=== PATIENT | female | born 1980 | race Caucasian/White ===

== ENCOUNTER 2025-10-08 18:53 | Emergency (ER) | payer OTHER, SELFPAY ==
--- OUTSIDE RECORDS SUMMARY | 2025-10-08 18:56 | XMS_ITS | Clinical Summary ---
Author Organization [facility] Address [address] [place] [address] Phone Care Team Providers Care Tire Debeader Name Role Phone Allan Tafoya MD Primary Care Provider [phone] Morales Lemus DPM Unavailable Allergies No known active allergies Medications escitalopram (LEXAPRO) 10 MG Tablet Take 10 mg by mouth daily. Active Levonorgestrel-E thinyl Estrad 0.1-20 MG-MCG Tablet 02/21/2017 Active nitrofurantoin, macrocrystal-mon ohydrate, (MACROBID) 100 MG Capsule Take 100 mg by mouth 2 times daily. Active Active Problems Problem Noted Date Diagnosed Date Plantar fasciitis, right 05/18/2017 Other enthesopathy of right foot 05/18/2017 Family History Medical History Relation Name Comments Diabetes Father Leukemia/Lymphoma Father Other-comment Mother Relation Name Status Comments Father Mother Alive Social History Tobacco Use Types Packs/Day Years Used Date Smoking Tobacco: Never Tobacco Cessation:Counseling Given: No Alcohol Use Standard Drinks/Week Comments Yes 0 (1 standard drink = 0.6 oz pur e alcohol) occassionally Sexually Active Control Partners Comments Not Currently Comments No Sex and Gender Information Value Date Recorded Sex Assigned at Not on file Legal Sex Female 12:24 AM CDT Gender Identity Not on file Sexual Orientation Not on file Last Filed Vital Signs Vital Sign Reading Time Taken Comments Blood Pressure 104/52 11/23/2017 12:33 AM LIBRARY TECHNICIAN Pulse 72 11/23/2017 12:33 AM LIBRARY TECHNICIAN Temperature 36.8 C (98.2 F) 11/22/2017 7:52 PM LIBRARY TECHNICIAN Respiratory Rate 16 11/23/2017 12:33 AM LIBRARY TECHNICIAN Oxygen Saturation 96% 11/23/2017 12:33 AM LIBRARY TECHNICIAN Inhaled Oxygen Concentration - - Weight 99.8 kg (220 lb) 11/22/2017 7:52 PM LIBRARY TECHNICIAN Height 177.8 cm (5' 10) 11/22/2017 7:52 PM LIBRARY TECHNICIAN Body Mass Index 31.57 11/22/2017 7:52 PM LIBRARY TECHNICIAN Plan of Treatment Health Maintenance Due Date Last Done Comments Hepatitis C Virus (HCV) Screening 1982 TdaP Immunization 1982 Varicella Immunization (1 of 2 - 13+ 2-dose series) 1995 Hepatitis B Immunization (1 of 3 - 19+ 3-dose series) 2001 Pap Smear 2003 Cervical Cancer Screening (CCS) 01/28/2012 HPV/Cotest 01/28/2012 Influenza Immunization (#1) 2025 12/20/2016 SARS-COV-2 Immunization ( season) 2025 Respiratory Syncytial Virus (RSV) Immunization (Adult) (1 - 1-dose 75+ series) 2057 Human Papillomavirus (HPV) Immunization (No Doses Required) Completed Meningococcal Immunization (ACWY) Aged Out No longer eligible based on patient's age to complete this topic Pneumococcal Immunization Combined Aged Out No longer eligible based on patient's age to complete this topic Rotavirus Immunization Aged Out No lo nger eligible based on patient's age to complete this topic Care Teams Tire Debeader Relationship Specialty Start Date End Date Allan Tafoya MD [address] [place] [id number] PCP - General Internal Medicine 11/04/16 Morales Lemus DPM [address] [place] [id number] Consulting Physician Podiatry 05/02/17
--- OUTSIDE RECORDS SUMMARY | 2025-10-08 18:56 | XMS_ITS | Clinical Summary ---
Author Organization [facility] Address [address] [place] [address] Care Team Providers Care Machine Repair Person Name Role Phone Allan Tafoya MD Primary Care Provider [phone] Allergies Active Allergy Reactions Criticality Noted Date Comments Shellfish Containing Products Swelling Medium 08/11/2023 Swelling of face, lips, eyes. Medications hydrOXYzine (ATARAX) 25 mg tablet Take 1 tablet (25 mg total) by mouth 2 (two) times a day as needed for anxiety 60 tablet 3 4 Active fluticasone propionate (FLONASE) 50 mcg/actuation nasal sprayIndications :Upper respiratory tract infection, unspecified type Administer 2 sprays into each nostril daily 1 each 4 Active busPIRone (BUSPAR) 5 mg tabletIndication s:Generalized Anxiety Disorder Take 1 tablet (5 mg total) by mouth 3 (three) times a day 90 tablet 5 5 12/03/19 26 Active sertraline (ZOLOFT) 50 mg tablet TAKE 1 TABLET DAILY 90 tablet 3 5 Active phentermine 15 mg capsule Take 1 capsule (15 mg total) by mouth every morning 30 capsule 5 10/11/20 25 Active Active Problems Problem Noted Date Diagnosed Date Moderate major depression 09/11/2025 Assessment & Plan (09/11/2025 2:08 PM SUPERVISOR EXTRUDING DEPARTMENT): Reports stable on sertraline and PRN BuSpar. Will continue. Class 1 obesity due to exces s calories with serious comorbidity and body mass index (BMI) of 32.0 to 32.9 in adult 08/09/2024 Assessment & Plan (05/23/2025 9:01 AM CDT): Continue with excellent diet changes. Assessment & Plan (12/03/2024 4:00 PM SUPERVISOR EXTRUDING DEPARTMENT): Will continue with excellent physical activity. Continue with healthy diet. Will continue phentermine. Will continue to monitor. Assessment & Plan (08/09/2024 10:43 AM CDT): Discussed options. Will initiate Qsymia. Hopefully will help with cravings and weight loss. Follow-up in 3 months. Will monitor response. Encounter for weight loss counseling 05/10/2024 Assessment & Plan (05/23/2025 9:02 AM CDT): She would like to decrease phentermine dosage. Will decrease to 15 mg. Will follow up in 3 months. Continue with excellent lifestyle. Assessment & Plan (05/10/2024 8:42 AM CDT): Keep up the great work with lifestyle! Lateral epicondylitis of both elbows 05/10/2024 Assessment & Plan (05/10/2024 8:42 AM CDT): Reviewed bracing/conservative measures. RTC if worsening or not resolving and can consider referral to ortho. Annual physical exam 06/30/2021 Assessment & Plan (09/11/2025 2:08 PM SUPERVISOR EXTRUDING DEPARTMENT): Visit preventive in nature. Reviewed recent laboratory workup. Can try collagen or move free for joints. She does stay up-to-date with mri manager. Assessment & Plan (08/09/2024 9:17 AM CDT): In regard to health maintenance, Mammogram utd WWE utd w/ LINUX ADMINISTRATOR Eat a healthy diet: focus on lean meats and proteins, more fruits, vegetables and whole grains and low in sugars and fats. Limit red meat and avoid processed meat. Maintain a healthy weight; avoid being overweight. Aim for a normal body mass index (BMI) of 18.5-24.9. Help learning to eat healthier, we can set up appointment with business information consultant/flake miller helper. Have an active lifestyle, strive for 30 minutes of moderate exercise 5 times a week and strength or resistance training at least twice a week. Use broad-spectrum (UVA+UVB) sunscreen with SPF 30 or greater, is water resistant, limit time spent in the sun (10 am-4pm), wear hat, wear UV protective clothing, wear sunglasses. Never use a tanning bed. Skin that was irradiated may be more sensitive over your lifetime. Do not smoke or chew tobacco; participate in a smoking cessation program. Limit alcohol intake, 1 drink per day for a woman and 2 drinks per day for a man. Assessment & Plan (07/01/2021 5:27 PM CDT): Preventive exam; reviewed recommended preventive screenings and vaccinations. Does not want covid-19 vaccine or annual flu vaccine. Wear sunscreen/protective clothing when outdoors. Mammogram due 01/2022 Screening for lipid disorders 01/31/2020 Assessment & Plan (07/01/2021 5:16 PM CDT): Will check labs today, discussed benefits of diet and exercise. Assessment & Plan (01/31/2020 2:18 PM CDT): 01/31/20 ZT=925 HDL=56 YK=871 LDL=96 TC/HDL=3.2 GLU=71 Copy of results given as well as written explanations. Class 1 obesity due to exces s calories without serious comorbidity with body mass index (BMI) of 32.0 to 32.9 in adult 01/31/2020 Assessment & Plan (05/10/2024 8:08 AM CDT): Reviewed diet and exercise. Refilled phentermine. Reviewed red flags. Assessment & Plan (07/01/2021 5:14 PM CDT): Discussed healthy diet and importance of regular physical activity. Assessment & Plan (01/31/2020 1:52 PM CDT): Has lost 8# since 09/2019 appt. Congratulated on wt loss. Reviewed need to lose weight, reviewed health benefits. Reviewed recommendations for daily intake & activity 20-30 minutes/day. Discussed healthy diet and importance of regular physical activity. Folliculitis 01/31/2020 Assessment & Plan (01/31/2020 2:19 PM CDT): Clindamycin 300mg bid x 10 days sent. Reviewed abx SE & scheduling. Discussed draining/cleaning hot tub. Need to have water tested. Prednisone/medrol dose pack sent, hydroxyzine 25mg qid prn & triamcinolone crease 0.1% bid. Discussed possiblity of secondary infection r/t scratching. To keep fingernails clean/short. Anxiety 08/17/2018 Assessment & Plan (05/23/2025 9:02 AM CDT): Stable on current regimen. Continue working with therapist. Assessment & Plan (12/03/2024 3:59 PM SUPERVISOR EXTRUDING DEPARTMENT): She was able to speak with therapist in our office today, Candace. She is going to check into EAP at work. Will restart sertraline. Will also add BuSpar. Assured her it is okay to take for extended period of time. Also continue with hydroxyzine as needed. Continue with excellent physical activity. Will continue to monitor. Assessment & Plan (08/09/2024 9:29 AM CDT): Increased zoloft to 100 mg daily. Reviewed lifestyle recommendations. Will continue to monitor. Assessment & Plan (05/10/2024 8:42 AM CDT): Stable on sertraline. No changes. Will continue to monitor. Assessment & Plan (07/01/2021 5:24 PM CDT): Will increase sertraline to 50mg daily. Discussed adding buspar, patient declines at this time. Assessment & Plan (01/31/2020 2:19 PM CDT): Reports good control of anxiety w/current regimen. No changes to be made at this time. Reviewed med Ses & scheduling. Reviewed red flags. Assessment & Plan (09/26/2019 4:47 PM SUPERVISOR EXTRUDING DEPARTMENT): Reports good control of anxiety w/current regimen. No changes to be made at this time. Sertraline 25 mg refill sent. To make f/u appt in 3mos; sooner if needed. Reviewed med Ses & scheduling. Reviewed red flags. Assessment & Plan (08/22/2019 9:59 PM SUPERVISOR EXTRUDING DEPARTMENT): Had been on escitalopram since 2005. Stopped taking last week as she felt that it did not help. Discussed different types of medications & their Ses/MOA. Sertraline 25 mg daily sent. To take 1/2 tab for 1st 8 days then increase to full tab. To make f/u appt in 5-6 weeks. Aware that it may take up to 4 weeks to notice effects & 6-8 weeks to feel full effects. Reviewed main Ses of GI upset & WELLS Reviewed red flags; aware to call office/911 if thoughts of harming self/others. To stop medications immediately in that instance. Other enthesopathy of right foot 05/18/2017 Plantar fasciitis, right 05/18/2017 Back pain 03/02/2014 Overview (01/21/2017): BACKACHE NOS Depression 03/02/2014 Overview (01/21/2017): Depression Assessment & Plan (12/03/2024 3:58 PM SUPERVISOR EXTRUDING DEPARTMENT): See plan as above. Assessment & Plan (07/01/2021 5:25 PM CDT): Previous good response to sertraline, will increase to 50mg daily. Patient interested in counseling options, discussed benefits of engaging with counselor and instructed patient to obtain list of counseling services from insurer. Reviewed medication side effects and scheduling. Will continue to monitor and plan for follow up in the about 8 weeks. Resolved Problems Problem Noted Date Diagnosed Date Resolved Date Severe obesity (BMI 35.0-39. 9) with comorbidity (CMS/HCC) 01/31/2020 06/30/2021 Need for influenza vaccination 08/21/2019 01/31/2020 Assessment & Plan (08/22/2019 9:57 PM SUPERVISOR EXTRUDING DEPARTMENT): Flu vaccine given today. Discussed possible tenderness/redness at injection site. Encounters Date Type Department Care Team Description 09/11/2025 1:30 PM SUPERVISOR EXTRUDING DEPARTMENT Office Visit [facility] [address] [place] [address] Katie Roberto NP Annual physical exam (Primary Dx); Moderate major depression (HCC); Class 1 obesity due to excess calories with serious comorbidity and body mass index (BMI) of 33.0 to 33.9 in adult 08/14/2025 Orders Only [facility] [address] [place] [address] Allan Tafoya MD from Last 3 Months Immunizations Immunization Administration Dates Next Due Influenza, Quadrivalent, Spl it, Preservative Free, Intradermal 12/20/2016 Influenza, Quadrivalent, Spl it, Preservative Free, Intramuscular 08/21/2019 Influenza, Unspecified 09/11/2025(Deferr ed: Patient Refused),12/03/2024(Deferred: Patient Refused),08/09/2024(Deferred: Patient Refused),08/11/2023(Deferred: Patient Refused),10/19/2022(Deferred: Patient Refused),08/10/2022(Deferred: Patient Refused),07/17/2021(Deferred: Patient Refused),07/17/2021(Deferred: Patient Refused),06/30/2021(Deferred: Patient Refused),07/17/2020(Deferred: Patient Refused),10/17/2018(Deferred: Patient Refused),10/17/2018(Deferred: Patient Refused),08/17/2018(Deferred: Patient Refused),08/17/2018(Deferred: Patient Refused),12/08/2017(Deferred: Patient Refused) Tdap 01/23/2016,03/03/2014 Surgical History Surgery Date Site/Laterality Comments OTHER SURGICAL HISTORY FT, : No GDM, No pre-E, no PIH Medical History Medical History Date Comments Hx Other Medical 2010 FT, Anxiety disorder Anxiety Family History Medical History Relation Name Comments Other Father Alive and well; Hypertension Mother Maritza Morton Hypertensio n; Other Mother Maritza Morton Alive and w ell; Relation Name Status Comments Father Alive Mother Maritza Morton Alive Social History Tobacco Use Types Packs/Day Years Used Date Smoking Tobacco: Never Smokeless Tobacco: Never Tobacco Cessation:Counseling Given: Not Answered Alcohol Use Standard Drinks/Week Comments Yes 0 (1 standard drink = 0.6 oz pur e alcohol) occasionally AUDIT-C Answer Date Recorded Q1: How often do you have a drink containing alc ohol? Monthly or less 08/11/2023 Q2: How many drinks containi ng alcohol do you have on a typical day when you are drinking? 1 or 2 08/11/2023 Q3: How often do you have si x or more drinks on one occasion? Never 08/11/2023 PHQ-2 Answer Date Recorded PHQ-2 Total Score (If total score is 3 or more points, staff should administer the PHQ-9) 2 09/11/2025 Comments No Sex and Gender Information Value Date Recorded Sex Assigned at Not on file Legal Sex Female 11:50 PM SUPERVISOR EXTRUDING DEPARTMENT Gender Identity Not on file Sexual Orientation Not on file Obstetrics History Para Term AB IAB SAB Ectopic Multiple Livin g Live Births 2 2 2 Date Outcome GA Total Labor Labor/2nd/3rd Weight Sex Type Anes PTL Sakina A1 A5 Name Clin Term Term Last Filed Vital Signs Vital Sign Reading Time Taken Comments Blood Pressure 110/66 09/11/2025 1:34 PM SUPERVISOR EXTRUDING DEPARTMENT Pulse 78 09/11/2025 1:34 PM SUPERVISOR EXTRUDING DEPARTMENT Temperature 36.7 C (98 F) 09/11/2025 1:34 PM SUPERVISOR EXTRUDING DEPARTMENT Respiratory Rate 20 09/11/2025 1:34 PM SUPERVISOR EXTRUDING DEPARTMENT Oxygen Saturation 99% 09/11/2025 1:34 PM SUPERVISOR EXTRUDING DEPARTMENT Inhaled Oxygen Concentration - - Weight 102 kg (224 lb 12.8 oz) 09/11/2025 1:34 P M SUPERVISOR EXTRUDING DEPARTMENT Height 175.3 cm (5' 9.02) 09/11/2025 1:34 PM CS T Body Mass Index 33.18 09/11/2025 1:34 PM SUPERVISOR EXTRUDING DEPARTMENT Plan of Treatment Health Maintenance Due Date Last Done Comments Hepatitis C Screening 1982 Varicella Vaccines (1 of 2 - 13+ 2-dose series) 1995 Hepatitis B Screening 01/28/2000 HPV Vaccines (1 - 3-dose SCDM series) 2009 Cervical Cancer Screening 12/15/2017 12/15/2016 DTaP/Tdap/Td Vaccine (3 - Td or Tdap) 01/22/2026 01/23/2016, 03/03/2014 Influenza Vaccine (#1) 2026 08/21/2019, 2016 Postponed from 06/17/2025 (Patient declined, but will receive in the future) Breast Cancer Screening-Mammogram 04/25/2026 04/25/2025, 03/16/2024, 03/15/2023, Additional history exists Depression Screening 09/11/2026 09/11/2025, 08/09/2024, 08/11/2023, Additional history exists Regular Well Visit/Exam 18-64 09/11/2026 09/11/2025, 08/09/2024, 08/11/2023, Additional history exists Pneumococcal vaccine <65 Aged Out No longer eligible based on patient's age to complete this topic Procedures Procedure Name Priority Date/Time Associated Diagnosis Comments SCAN - LABS 08/14/2025 SCREENING MAMMOGRAM BILATERAL W RICK Schedule Routine, Read Routine (OP Routine) 04/25/2025 9:12 AM CDT Screening mammogram, encounter for HM PAP SMEAR WITH HPV Routine 12/15/2016 from Last 3 Months or Most Recently Relevant to Health Maintenance Results * SCAN - LABS (08/14/2025) us Allan Tafoya MD Final Res ult * Screening Mammogram Bilateral W Rick (04/25/2025 9:12 AM CDT) Anatomical Region Laterality Modality Breast Bilateral Mammography Impressions 04/25/2025 2:39 PM CDT Bilateral No evidence of malignancy in either breast. OVERALL BI-RADS FINAL ASSESSMENT: 1 - Negative RECOMMENDATION: Recommend bilateral annual screening mammography. Narrative 04/25/2025 2:39 PM CDT EXAMINATION: Screening Mammogram Bilateral W Rick: 04/25/2025 COMPARISON: Relevent prior studies available at the time of interpretation were reviewed, including the most recent mammogram on: 03/16/2024. TECHNIQUE: Mammography was performed with 2D and digital breast tomosynthesis (DBT) images. CAD was utilized. BREAST PARENCHYMAL COMPOSITION: The breasts are heterogeneously dense, which may obscure small masses. FINDINGS: Bilateral There is no suspicious mass, calcification, or architectural distortion in either breast. us Self Screening Mammogram IMG MAMMO PROCEDURES Fi nal Result * PAP SMEAR WITH HPV (12/15/2016) HM Pap smear Unknown Comment:Dr Gretel Lancaster, 01/03 17 per Mrs Garcia us Historical Provider MD HEALTH MAINTENANCE Final Result from Last 3 Months or Most Recently Relevant to Health Maintenance Insurance [facility] PL[facility] PL[facility] Care Teams Machine Repair Person Relationship Specialty Start Date End Date Allan Tafoya MD [address] [place] [id number] PCP - General 01/14/17
[2025-10-08 19:01] VITALS: BP 132/70; PULSE 85; RESP 20; TEMP 37.5; O2SAT 99
[2025-10-08 19:21] LABS: EDCOVIDSCREEN Negative (Negative); EDINFLUASCREEN Negative (Negative); EDINFLUBSCREEN Negative (Negative); EDSTREPNEGPOS1 Negative (Negative)
--- NOTE | 2025-10-08 19:38 | ED_ITS ---
HPI - URI/Sore Throat General Chief Complaint: Upper Respiratory Infection Stated Complaint: flu like symptoms/cough Time Seen by Provider: 10/08/25 19:20 Source: patient and RN notes reviewed Mode of arrival: ambulatory Limitations: no limitations History of Present Illness HPI Narrative: 45-year-old female presents to the [facility] complaining of upper respiratory symptoms for 5-6 days. Patient said symptoms started as a cough, congestion, runny nose. Patient said she started to feel better and then today with worsening symptoms reporting worsening sinus pressure, mucopurulent nasal drainage, sore throat, worsening cough. Patient says the cough is dry and productive at times worse at night, she is having a hard time sleeping. Patient taking Tessalon Perles and [id number] cold and flu medication to help with her symptoms without relief. Related Data Home Medications ?Medication ?Instructions ?Recorded ?Confirmed ?Last Taken ?Type sertraline 100 mg tablet mg 10/08/25 Unknown History Allergies Allergy/AdvReac Type Severity Reaction Status Date / Time No Known Allergies Allergy Verified 10/08/25 19:05 Review of Systems Review of Systems: CONSTITUTIONAL: Denies fever, chills, body aches, or sweats. EYES: Denies visual changes, redness, or discharge. ENT: Positive for rhinorrhea, sinus pressure, mucopurulent nasal drainage, congestion, sore throat. Negative for otalgia. CARDIOVASCULAR: Denies chest pain, palpitations, or edema. RESPIRATORY: Positive for cough. Negative for dyspnea or wheezing GASTROINTESTINAL: Denies abdominal pain, nausea, vomiting, or diarrhea. GENITOURINARY: Denies dysuria or hematuria. SKIN: Denies rash or itching. MUSCULOSKELETAL: Denies back pain, joint pain, or myalgia. NEUROLOGIC: Denies headache, numbness, or weakness. PSYCHIATRIC: Denies anxiety or depression. All other systems reviewed are negative, except as documented in HPI. PMFSH Comments At the time of my signature, I reviewed and agree with the nursing past medical, surgical, social, and family history. There is no relevant family history pertinent to the patient complaint. Exam Narrative: GENERAL: This is a well-nourished, well-developed adult, in no apparent distress. They are non ill-appearing, nontoxic appearing. HEAD: normocephalic, atraumatic. EYES: Sclera clear/white. Vision is grossly intact. Conjunctiva normal bilaterally. Extraocular movements intact. EARS: External ears normal, auditory canals clear and without drainage, TMs without erythema or perforation. Hearing grossly intact. NOSE: External nose normal with no obvious nasal discharge, nasal turbinates erythematous, no rhinorrhea. Maxillary and frontal sinus and tenderness to palpation. THROAT: Mucous membranes moist, posterior pharynx erythematous without exudate. Uvula is midline. Postnasal drip present. NECK: Neck supple, non-tender without lymphadenopathy, masses or thyromegaly. CARDIOVASCULAR: Regular rate and rhythm without murmurs, gallops, or rubs. RESPIRATORY: Clear to auscultation. Breath sounds equal bilaterally. No wheezes, rales, or rhonchi. SKIN: warm, Dry, intact with no suspicious lesions or rash, good texture and turgor. NEURO: awake, alert, and oriented to person, place and time. There were no obvious focal neurologic abnormalities. EXTREMITIES: No joint tenderness, effusion, or edema noted. BACK: Nontender without deformity. Course Course Level of Care: Express Care Visit Vital Signs Vital signs: Vital Signs Temperature 99.5 F 10/08/25 19:01 Pulse Rate 85 10/08/25 19:01 Respiratory Rate 20 10/08/25 19:01 Blood Pressure 132/70 10/08/25 19:01 Pulse Oximetry 99 10/08/25 19:01 Oxygen Delivery Room Air 10/08/25 19:01 Temperature 99.5 F 10/08/25 19:01 Pulse Rate 85 10/08/25 19:01 Respiratory Rate 20 10/08/25 19:01 Blood Pressure 132/70 10/08/25 19:01 Pulse Oximetry 99 10/08/25 19:01 Oxygen Delivery Room Air 10/08/25 19:01 [facility] Narrative Medical decision making narrative: Rapid COVID, flu, strep were negative. A throat culture is pending. Given patient's worsening of symptoms in waxing and waning of symptoms likely she has a bacterial sinusitis. Will treat her with Augmentin. Give her Medrol Dosepak for the cough. Discussed physical exam findings. Advised supportive measures and signs/symptoms to go to the ER. Pt is appropriate for outpt treatment and f/u. Differential Diagnosis Differential Diagnosis: Differential diagnostic considerations for upper respiratory infection include upper respiratory infection, croup, otitis media, sinusitis, viral infection, bronchitis, influenza, pharyngitis, strep, uvulitis. Lab Data [facility] Lab Attestation statement: I personally reviewed the patient's lab results. Labs: Lab Results 10/08/25 Range/Units 19:20 POC Influenza A Ag Negative (Negative) POC Influenza B Ag Negative (Negative) POC SARS CoV-2 Ag Negative (Negative) POC Grp A Strep Screen Negative (Negative) Discharge Plan Discharge Clinical Impression: Sinusitis Qualifiers: Sinusitis location: unspecified location Chronicity: acute Recurrence: non- recurrent Qualified Code(s): J01.90 - Acute sinusitis, unspecified Patient Disposition: Home Condition: Stable Instructions: Antibiotic Form, Sinusitis (ED) Additional Instructions: Take the antibiotics as directed and complete the course even if you start to feel better. Take the Medrol dose as directed You may use a Neti pot saline rinse 3 times a day with lukewarm distilled water Continue to take Tylenol or Motrin as needed for pain or fevers. Tsp of honey at night before bed may help with the cough. Use a humidifier or vaporizer at night. Drink plenty of water. 8-10 glasses per day. Use flonase 2 times per day for 5 days then as needed Take mucinex 2 times per day and be sure to take with 8oz of water. Follow up with Primary provider in 3-5 days Please go to the ER if he develops any difficulty breathing, chest pain, vomiting, worsening symptoms, or any other serious concerns Patient Language: Gabonese Prescriptions: New methylprednisolone 4 mg tablets,dose pack See Rx Instructions .ROUTE .COMPLEX Qty: 21 0RF Rx Instructions: for 6 days amoxicillin-pot clavulanate 875-125 mg tablet 1 tablet PO Q12H 7 Days Qty: 14 0RF No Action sertraline 100 mg tablet Follow-up/Referrals: Harms,Allan [place] M.D. [Primary Care Provider] Time of Disposition: 19:31
== END 2025-10-08 19:37 | disposition home or self-care (01) ==
PROVIDERS: PCP Family Medicine
DX: J01.90 Acute sinusitis, unspecified (principal); Z20.822 Contact with and (suspected) exposure to COVID-19
CPT/HCPCS: 87081; 87426; 87804; 87880; 99213; G0463